=== PATIENT | female | born 1975 | race African-American/Black ===

== ENCOUNTER 2017-11-22 20:51 | Observation (INO) | payer MEDICAID, OTHER ==
[~2017-11-22] VITALS: Ht 167.6 cm; Wt 118.0 kg
[2017-11-22 20:52] VITALS: BP 115/61; PULSE 107; RESP 18; TEMP 100.3; O2SAT 100
[2017-11-22] MEDS ORDERED: ASPIRIN 81 MG CHEW TAB PO ONE (21:15)
[2017-11-22] MEDS ORDERED: NITROGLYCERIN 0.4 MG SL 25 TABS/BTL SL ONE (21:15)
[2017-11-22] MEDS ORDERED: SODIUM CHLORIDE 0.9% FLUSH 10 ML FLUSH IVF PRN (21:15)
--- NOTE | 2017-11-22 21:25 | PD ---
HPI Chief Complaint: Chest Pain Time Seen by Provider: 21:04 Travel History International Travel<30 days: No Contact w/Intl Traveler<30days: No Traveled to known affect area: No History of Present Illness HPI The patient is a 41 year old female who presents to the [facility] emergency department with a history of chest pain that began 3 days ago. The patient reports that the pain is been coming and going. She reports that at times it gets worse with stress. The patient reports that today she began to have shortness of breath. She reports that the pain is also gotten worse with each time that it recurs. She reports that it was a 6 out of 10 in severity, however now it is a 3 out of 10 in severity. She reports that it recurred around 4 PM and has been constant since then. She reports that the pain is in the left side of her chest and radiates up into the left side of her neck and left arm. She denies any prior history of cardiac disease. She does report being borderline diabetic, however her recent history is complicated by having a gastric sleeve laparoscopically done by Dr. Natarajan on last Thursday, 5 days ago. On review of systems otherwise, the patient denies having any known recent fevers, cough or congestion. She denies having any nausea or vomiting. She denies having any diarrhea. Her last bowel movement was earlier today. She denies having any blood in her stool or black or tarry stools. She denies having any diaphoresis. She denies having any lower extremity edema, calf pain , or erythema. She reports that her abdominal pain at the surgical site has been decreasing with time. She denies having any dysuria, urinary frequency, or urinary urgency. On review of systems otherwise, the patient denies having any neurologic symptoms. LMP: Spotting began today, history of irregular cycles. PFSH Past Medical History Narrative Medical The patient's past medical history is significant for being prediabetic, obesity Autoimmune Disease: No Cancer: No Cardiovascular Problems: No Gastrointestinal Disorders: No Genitourinary: No Musculoskeletal: No Neurologic: No Psychiatric: No Respiratory: No Seizures: No ?: Not : 8 Para: 6 : 2 Past Surgical History Narrative Surgical The patient's past surgical history is significant for a gastric sleeve, cholecystectomy Cholecystectomy: Yes Endocrine Surgery: No Neurologic Surgery: No Pacemaker: No Thoracic Surgery: No Other Surgery: Yes (BARIATRIC ) Social History Alcohol Use: Yes (OCC) Tobacco Use: No Substance Use: No Allergies-Medications (Allergen,Severity, Reaction): Coded Allergies: ciprofloxacin (Unverified Allergy, Severe, Cramping, 11/22/17) Reported Meds & Prescriptions Reported Meds & Active Scripts Active Reported Ondansetron Odt 4 Mg Tab 4 Mg SL Q6HR PRN Pantoprazole (Pantoprazole Sodium) 40 Mg Tab 40 Mg PO DAILY Hydrocodone-Acetaminophen Liq 7.5-325 Mg/15 Ml Soln 15 Ml PO Q4-6H PRN Review of Systems Except as stated in HPI: all other systems reviewed are Neg General / Constitutional: No: Fever Eyes: No: Visual changes HENT: No: Headaches Cardiovascular: Positive: Chest Pain or Discomfort Respiratory: Positive: Shortness of Breath Gastrointestinal: No: Nausea, Vomiting, Diarrhea, Abdominal Pain, Indigestion, Loss of Appetite Genitourinary: No: Dysuria Musculoskeletal: No: Pain Skin: No Rash Neurologic: No: Weakness, Focal Abnormalities, Change in Mentation, Slurred Speech, Sensory Disturbance Psychiatric: No: Depression Endocrine: No: Polydipsia Hematologic/Lymphatic: No: Easy Bruising Physical Exam Narrative General: The patient is a well-developed well-nourished female in no acute distress. Head and Neck exam: Head is normocephalic atraumatic. Eyes: EOMI, pupils are equal round and reactive to light. Nose: Midline septum with pink mucous membranes Mouth: Dentition unremarkable. Moist mucus membranes. Posterior oropharynx is not erythematous. No tonsillar hypertrophy. Uvula midline. Airway patent. Neck: No palpable lymphadenopathy. No nuchal rigidity. No thyromegaly. Cardiovascular: Regular rate and rhythm without murmurs, gallops, or rubs. No pulse deficit to the extremities on simultaneous auscultation and palpation of her radial artery. Lungs: Clear to auscultation bilaterally. No wheezes, rhonchi, or rales. Abdomen: Soft, without tenderness to palpation in all 4 quadrants of the abdomen. Minimal discomfort around her laparoscopic abdominal wounds, however there is no erythema, drainage, or edema surrounding the site. No guarding, rebound, or rigidity. Normal bowel sounds are audible. No tenderness on palpation of McBurney's point. Extremities: No clubbing, cyanosis, or edema. 2+ pulses in all 4 extremities. No calf tenderness on palpation. Negative Homans sign. No palpable cords. Back: No spinous process tenderness to palpation. No costovertebral angle tenderness to palpation. Neurologic Exam: Grossly nonfocal. Skin Exam: No rash noted. Intact skin that is warm and dry. Data Data Last Documented VS Vital Signs Date Time Temp Pulse Resp B/P (MAP) Pulse Ox O2 Delivery O2 Flow Rate FiO2 11/22/17 22:52 83 18 116/56 (76) 100 11/22/17 21:44 Room Air 11/22/17 20:52 100.3 Orders Orders Electrocardiogram (11/22/17 21:06) B-Type Natriuretic Peptide (11/22/17 21:06) Ckmb (Isoenzyme) Profile (11/22/17 21:06) Complete Blood Count With Diff (11/22/17 21:06) Comprehensive Metabolic Panel (11/22/17 21:06) Magnesium (Mg) (11/22/17 21:06) Prothrombin Time / Inr (Pt) (11/22/17 21:06) Act Partial Throm Time (Ptt) (11/22/17 21:06) Troponin I (11/22/17 21:06) Lipase (11/22/17 21:06) Ecg Monitoring (11/22/17 21:06) Bilateral Bp Monitoring (11/22/17 21:06) Iv Access Insert/Monitor (11/22/17 21:06) Oximetry (11/22/17 21:06) Oxygen Administration (11/22/17 21:06) Aspirin Chew (Aspirin Chew) (11/22/17 21:15) Sodium Chloride 0.9% Flush (Ns Flush) (11/22/17 21:15) Nitroglycerin Sl (Nitrostat Sl) (11/22/17 21:15) Chest, Pa & Lat (11/22/17 21:06) Ed Urine Pregnancytest Poc (11/22/17 21:06) CKMB (11/22/17 21:39) CKMB% (11/22/17 21:39) Pantoprazole Inj (Protonix Inj) (11/22/17 22:45) Ct Pulmonary Angiogram (11/22/17 22:32) Potassium Chloride Eff (K-Lyte Cl Eff) (11/22/17 23:30) Iohexol 350 Inj (Omnipaque 350 Inj) (11/22/17 23:30) Admit Order (Ed Use Only) (11/23/17 00:13) Consult General Surgery (11/23/17 ) Labs Laboratory Tests Test 11/22/17 21:39 White Blood Count 9.1 TH/MM3 Red Blood Count 4.38 MIL/MM3 Hemoglobin 11.1 GM/DL Hematocrit 32.9 % Mean Corpuscular Volume 75.2 FL Mean Corpuscular Hemoglobin 25.4 PG Mean Corpuscular Hemoglobin Concent 33.7 % Red Cell Distribution Width 14.9 % Platelet Count 323 TH/MM3 Mean Platelet Volume 8.0 FL Neutrophils (%) (Auto) 60.3 % Lymphocytes (%) (Auto) 30.9 % Monocytes (%) (Auto) 5.5 % Eosinophils (%) (Auto) 2.8 % Basophils (%) (Auto) 0.5 % Neutrophils # (Auto) 5.5 TH/MM3 Lymphocytes # (Auto) 2.8 TH/MM3 Monocytes # (Auto) 0.5 TH/MM3 Eosinophils # (Auto) 0.3 TH/MM3 Basophils # (Auto) 0.0 TH/MM3 CBC Comment DIFF FINAL Differential Comment Prothrombin Time 11.2 SEC Prothromb Time International Ratio 1.1 RATIO Activated Partial Thromboplast Time 26.7 SEC Blood Urea Nitrogen 11 MG/DL Creatinine 0.69 MG/DL Random Glucose 90 MG/DL Total Protein 7.8 GM/DL Albumin 3.5 GM/DL Calcium Level 9.1 MG/DL Magnesium Level 2.1 MG/DL Alkaline Phosphatase 57 U/L Aspartate Amino Transf (AST/SGOT) 28 U/L Alanine Aminotransferase (ALT/SGPT) 48 U/L Total Bilirubin 1.0 MG/DL Sodium Level 138 MEQ/L Potassium Level 3.2 MEQ/L Chloride Level 102 MEQ/L Carbon Dioxide Level 25.6 MEQ/L Anion Gap 10 MEQ/L Estimat Glomerular Filtration Rate 113 ML/MIN Total Creatine Kinase 219 U/L Creatine Kinase MB 1.0 NG/ML Creatine Kinase MB % 0.5 % Troponin I LESS THAN 0.02 NG/ML B-Type Natriuretic Peptide 4 PG/ML Lipase 508 U/L MDM Medical Decision Making Medical Screen Exam Complete: Yes Emergency Medical Condition: Yes Medical Record Reviewed: Yes Differential Diagnosis Acute coronary syndrome, versus pulmonary embolism, versus postoperative pneumonia, versus anxiety disorder, versus acid reflux Narrative Course During the course of the patient's emergency department visit, the patient's history, examination, and differential diagnosis were reviewed with the patient. The patient was placed on a underground miner with oximetry and frequent blood pressure monitoring. The patient had IV access obtained and blood work sent for analysis. The patient had an EKG done on arrival that shows a sinus rhythm heart rate of 90, QRS duration is 100 ms, QTC [address] segment elevation, T waves are inverted in lead III, V1. The patient was initially provided aspirin 324 mg p.o. 1, nitroglycerin sublingual 1, Protonix 40 mg IV The patient's laboratory studies were reviewed and remarkable for a white count of 9.1, hemoglobin 11.1, platelets 323 with a normal differential, CMP is remarkable for a potassium of 3.2, CPK 219 with an MB percent of 0.5, troponin I less than 0.02, lipase 508. The patient's potassium was supplemented orally. Radiology studies were reviewed and remarkable for a chest x-ray that showed left lung atelectasis, CTA to rule out PE showed no evidence of PE, atelectasis at the bases. The patient's case was discussed with Dr. Pierre. The patient's history, laboratory studies and examination findings as well as imaging findings were discussed with him. He was agreeable with the plan for the patient to proceed with admission to the chest pain center. He will see the patient in consultation in the morning as she is recently postop. The patient's results were discussed with the patient, including the plan of care. I explained that further testing and/ or monitoring is indicated based on the patient's history, examination, and/ or laboratory findings. Therefore, I recommended admission for additional evaluation. The patient expressed understanding and was agreeable with this plan. The patient was admitted to the hospital in stable condition and sent to a bed under the care of the chest pain center. Physician Communication Physician Communication The patient's case including history, pertinent physical examination findings, and laboratory studies were discussed with Dr. Pierre. It was agreed that the patient would be admitted to the chest pain center for rule out serial cardiac enzyme protocol. Diagnosis Primary Impression: Chest pain, rule out acute myocardial infarction Admitting Information Admitting Physician Requests: Observation Nataly Velasco MD Nov 22, 2017 21:25
--- NOTE | 2017-11-22 21:41 | RADRPT ---
EXAM DATE/TIME: 11/22/2017 21:25 [facility] COMPARISON: No previous studies available for comparison. INDICATIONS : Short of breath, chest left arm and neck pain MEDICAL HISTORY : None. SURGICAL HISTORY : Cholecystectomy. Grastic sleeve ENCOUNTER: Initial ACUITY: 3 days PAIN SCORE: 6/10 LOCATION: Chest FINDINGS: PA and lateral views of the chest demonstrate the lungs to be symmetrically aerated without evidence of mass, infiltrate or effusion. Linear atelectasis or scarring at the left lung base. The cardiomedi astinal contours are unremarkable. Osseous structures are intact. CONCLUSION: 1. Linear atelectasis or scarring at the left lung base. No effusion or pneumothorax. Ashok Marks MD on November 22, 2017 at 21:39 Board Certified Radiologist. This report was verified electronically.
[2017-11-22 21:44] VITALS: BP_SYST 131; BP_SYST 132; BP_DIAS 59; BP_DIAS 64; PULSE 75; RESP 18; O2SAT 100; O2SAT 99
[2017-11-22 22:06] LABS: AUTOMATED NEUTROPHIL # 5.5 TH/MM3 (1.8-7.7); BASOPHIL % 0.5 % (0.0-2.0); EOSINOPHIL # 0.3 TH/MM3 (0-0.4); EOSINOPHIL % 2.8 % (0.0-4.0); HEMATOCRIT 32.9 % (35.0-46.0); HEMOGLOBIN 11.1 GM/DL (11.6-15.3); LYMPH % 30.9 % (9.0-44.0); LYMPHOCYTE # 2.8 TH/MM3 (1.0-4.8); MEAN CELL VOLUME 75.2 FL (80.0-100.0); MEAN CORPUSCULAR HEMOGLOBIN 25.4 PG (27.0-34.0); MEAN CORPUSCULAR HGB CONC 33.7 % (32.0-36.0); MONO % 5.5 % (0.0-8.0); MONOCYTE # 0.5 TH/MM3 (0-0.9); NEUT % 60.3 % (16.0-70.0); PLATELET COUNT 323 TH/MM3 (150-450); RED BLOOD COUNT 4.38 MIL/MM3 (4.00-5.30); RED CELL DISTRIBUTION WIDTH 14.9 % (11.6-17.2); WHITE BLOOD COUNT 9.1 TH/MM3 (4.0-11.0)
[2017-11-22 22:13] LABS: ALBUMIN 3.5 GM/DL (3.4-5.0); AST (GOT) 28 U/L (15-37); BICARBONATE 25.6 MEQ/L (21.0-32.0); BLOOD UREA NITROGEN 11 MG/DL (7-18); CALCIUM 9.1 MG/DL (8.5-10.1); CHLORIDE 102 MEQ/L (98-107); CREATININE 0.69 MG/DL (0.50-1.00); GLOMERULAR FILTRATION RATE 113 ML/MIN (>89); GLUCOSE,RANDOM 90 MG/DL (74-106); MAGNESIUM 2.1 MG/DL (1.5-2.5); SODIUM (NA) 138 MEQ/L (136-145)
[2017-11-22 22:14] LABS: ALT (GPT) 48 U/L (10-53)
[2017-11-22 22:18] LABS: ALKALINE PHOSPHATASE 57 U/L (45-117); TOTAL PROTEIN 7.8 GM/DL (6.4-8.2); TROPONIN I LESS THAN 0.02 NG/ML (0.02-0.05)
[2017-11-22 22:41] LABS: INTERNATIONAL NORMALIZED RATIO 1.1 RATIO; PROTHROMBIN TIME - PATIENT 11.2 SEC (9.8-11.6)
[2017-11-22] MEDS ORDERED: PANTOPRAZOLE SODIUM 40 MG VIAL IV PUSH ONE (22:45)
[2017-11-22 22:52] VITALS: BP 116/56; PULSE 83; RESP 18; O2SAT 100
[2017-11-22] MEDS ORDERED: IOHEXOL 350 MG/ML 10 ML VIAL (for RAD DIAG) IVCONTRAST ONE (23:30)
[2017-11-22] MEDS ORDERED: POTASSIUM CHLORIDE 25 MEQ EFFERVESCENT TAB PO ONE (23:30)
--- NOTE | 2017-11-22 23:56 | RADRPT ---
EXAM DATE/TIME: 11/22/2017 23:25 [facility] COMPARISON: CT PULMONARY ANGIOGRAM, May 11, 2016, 20:46. INDICATIONS : Shortness of breath and chest pain; rule out pulmonary embolus. Patient had bariatric surgery 5 days ago. IV CONTRAST: 78 cc Omnipaque 350 (iohexol) IV RADIATION DOSE: 10.56 CTDIvol (mGy) MEDICAL HISTORY : None SURGICAL HISTORY : Cholecystectomy. Bariatric surgery ENCOUNTER: Initial ACUITY: 1 day PAIN SCALE: 6/10 LOCATION: chest TECHNIQUE: Volumetric scanning of the chest was performed using a pulmonary embolism protocol MIP images were re constructed. Using automated exposure control and adjustment of the mA and/or kV according to patien t size, radiation dose was kept as low as reasonably achievable to obtain optimal diagnostic quality images. DICOM format image data is available electronically for review and comparison. Follow-up recommendations for detected pulmonary nodules are based at a minimum on nodule size and pa tient risk factors according to Fleischner Society Guidelines. FINDINGS: PULMONARY ARTERIES: No filling defects are seen in the pulmonary arteries to the proximal segmental level. More distal se gmental branches are incompletely visualized. LUNGS: Minimal linear airspace disease at the left lung base consistent with atelectasis PLEURAE: There is no pleural thickening or pleural effusion. MEDIASTINUM: There is good visualization of the great vessels of the middle mediastinum. No evidence of mediastin al or hilar adenopathy/mass. MUSCULOSKELETAL: Within normal limits for patient age. MISCELLANEOUS: Postsurgical features of gastric sleeve surgery. No significant free air or drainable fluid collectio ns in the upper abdomen. CONCLUSION: 1. No CT evidence for pulmonary embolism to the proximal segmental level. More distal segmental branc hes are incompletely evaluated. 2. Minimal left lung base atelectasis. Ranjeet Alston MD on November 22, 2017 at 23:51 Board Certified Radiologist. This report was verified electronically.
[2017-11-23 01:12] VITALS: BP 106/62; PULSE 82; RESP 18; O2SAT 100
[2017-11-23] MEDS ORDERED: HYDR1SOL3 PO (01:16)
[2017-11-23] MEDS ORDERED: ONDA4TAB7 SL (01:16)
[2017-11-23] MEDS ORDERED: PANT40TA3 PO (01:16)
[2017-11-23] MEDS ORDERED: SODIUM CHLOR 0.9% 1000 ML INJ 1,000 ML IV SCH (01:28)
[2017-11-23] MEDS ORDERED: ONDANSETRON HCL 4 MG/2 ML VIAL IV PUSH PRN (01:30)
[2017-11-23] MEDS ORDERED: ACETAMINOPHEN/HYDROcodone 325 MG/7.5 MG TAB PO PRN (01:30)
[2017-11-23] MEDS ORDERED: SODIUM CHLORIDE 0.9% FLUSH 10 ML FLUSH IV FLUSH PRN (01:30)
[2017-11-23 02:17] LABS: TROPONIN I LESS THAN 0.02 NG/ML (0.02-0.05)
[2017-11-23 03:04] VITALS: BP 116/55; PULSE 77; RESP 18; TEMP 98; O2SAT 100
[2017-11-23 05:20] LABS: TROPONIN I LESS THAN 0.02 NG/ML (0.02-0.05)
[2017-11-23] MEDS ORDERED: ACETAMINOPHEN 500 MG CPLT PO PRN (07:30)
[2017-11-23] MEDS ORDERED: NITROGLYCERIN 0.4 MG SL 25 TABS/BTL SL PRN (07:30)
--- NOTE | 2017-11-23 07:51 | HHI.HP ---
HPI Primary Care Physician Dr. Kaylin Morales Chief Complaint Chest pain History of Present Illness 41-year-old female status post gastric sleeve surgery, Thursday11/17/17, presents to the ER for further evaluation of chest pain. Onset 3 days ago. Location substernal. Characterized as stabbing, intermittent pain. Nonexertional. Severity on Thursday moderate, reports mild discomfort Thursday. Thursday discomfort persists with associated symptoms of dyspnea. Radiation to left arm, left shoulder, and left-sided neck since Thursday. Describes left arm, left shoulder, and left side of neck as numb. Duration on Thursday intermittent, however since Thursday discomfort became. constant. Associated symptoms of dyspnea has resolved. Denied associated symptoms of nausea, vomiting, or diaphoresis. Precipitating factor possible "gas pains" due to surgery last week. No known relieving factors. Currently chest pain-free. Become concerned of a blood clot, therefore came to ER for further evaluation. Review of Systems General: No fatigue,weakness, fever, chills, or recent illness. S/P gastric sleeve surgery 11/17/17, currently post op diet is clear liquids only. HEENT: No PATINO, no vision changes, no dysphasia. Chronic sinus issues. CV: As stated above. No current CP or pressure. RESP: SOB has resolved. No cough or hemoptysis. GI: No nausea, vomiting, or bowel changes. Clear diet currently, s/p gastric sleeve surgery 6 days ago. : No dysuria, urgency, frequency. Denies chance of , reports prior to surgery last week test negative. EXT: No lower leg edema, no paraesthesias MS: No discomfort or change in ROM NEURO: No LOC, motor/sensory deficits PSYCH: No anxiety, depression SKIN: No rashes, no concerning lesions Past Family Social History Allergies: Coded Allergies: ciprofloxacin (Unverified Allergy, Severe, Cramping, 11/22/17) Past Medical History None Past Surgical History Gastric sleeve (11/17/17), cholecystectomy Reported Medications Reported Meds & Active Scripts Active Reported Ondansetron Odt 4 Mg Tab 4 Mg SL Q6HR PRN Pantoprazole (Pantoprazole Sodium) 40 Mg Tab 40 Mg PO DAILY Hydrocodone-Acetaminophen Liq 7.5-325 Mg/15 Ml Soln 15 Ml PO Q4-6H PRN Active Ordered Medications Current Medications Medications (Trade) Dose Ordered Sig/Alda Route Start Time Stop Time Status Last Admin (NS Flush) 2 ml UNSCH PRN IVF 11/22/17 21:15 Sodium Chloride 1,000 ml @ 100 mls/hr Q10H IV 11/23/17 01:28 11/23/17 02:28 (NS Flush) 2 ml UNSCH PRN IV FLUSH 11/23/17 01:30 (NS Flush) 2 ml BID IV FLUSH 11/23/17 09:00 ([place] 7.5-325 Mg) 1 tab Q4H PRN PO 11/23/17 01:30 (Zofran Inj) 4 mg Q6H PRN IV PUSH 11/23/17 01:30 (Protonix) 40 mg DAILY PO 11/23/17 09:00 (Tylenol) 500 mg Q4H PRN PO 11/23/17 07:30 UNV (Nitrostat Sl) 0.4 mg Q5M PRN SL 11/23/17 07:30 UNV (Aspirin) 325 mg DAILY PO 11/23/17 09:00 UNV Family History Noncontributory for early onset cardiovascular disease. Social History No known diabetes, hypertension, or hyperlipidemia. Lifelong nonsmoker. Rare alcohol use. Denies any illegal drugs. . [id number] mother. Past cardiac testing Lexsican test (July 2017, Dr. Scott)-reported to be normal. Testing part of pre-op testing before gastric surgery. Physical Exam Vital Signs Vital Signs Date Time Temp Pulse Resp B/P (MAP) Pulse Ox O2 Delivery O2 Flow Rate FiO2 11/23/17 03:04 98.0 77 18 116/55 (75) 100 11/23/17 02:28 11/23/17 01:12 82 18 106/62 (77) 100 11/22/17 22:52 83 18 116/56 (76) 100 11/22/17 21:44 99 Room Air 11/22/17 21:44 75 18 132/59 (83) 100 131/64 (86) 11/22/17 21:44 99 Room Air 11/22/17 20:52 100.3 107 18 115/61 (79) 100 Room Air Physical Exam GENERAL: Alert WN, WD, NAD, pleasant, obese female HEAD: NC, AT EYES: Sclera clear, conjunctiva without injection, pupils equal and round ENT: Mucous membranes pink and moist NECK: Supple, no masses, trachea midline CV: RRR, without murmur, rub, gallop, no JVD, S1-S2 no S3-S4. Chest wall nontender with palpation. RESP: Clear lungs throughout bilateral, no crackles, wheeze, rhonchi, symmetrical chest rise, nonlabored, able to speak in full sentences ABD: Soft, NT, ND, no masses, positive bowel tones EXT: Pulses +24, no dependent edema MS: Normal tone 4 extremities, nontender, no obvious deformities, full range of motion NEURO: CN II through CN XII grossly intact, motor strength 5/5 PSYCH: A+O 3, pleasant affect, appropriate speech, mood, insight and judgment SKIN: Normal turgor, normal texture, no lesions, no rashes, even hair distribution Laboratory Laboratory Tests Test 11/22/17 21:39 11/23/17 01:47 11/23/17 03:55 White Blood Count 9.1 Red Blood Count 4.38 Hemoglobin 11.1 Hematocrit 32.9 Mean Corpuscular Volume 75.2 Mean Corpuscular Hemoglobin 25.4 Mean Corpuscular Hemoglobin Concent 33.7 Red Cell Distribution Width 14.9 Platelet Count 323 Mean Platelet Volume 8.0 Neutrophils (%) (Auto) 60.3 Lymphocytes (%) (Auto) 30.9 Monocytes (%) (Auto) 5.5 Eosinophils (%) (Auto) 2.8 Basophils (%) (Auto) 0.5 Neutrophils # (Auto) 5.5 Lymphocytes # (Auto) 2.8 Monocytes # (Auto) 0.5 Eosinophils # (Auto) 0.3 Basophils # (Auto) 0.0 CBC Comment DIFF FINAL Differential Comment Prothrombin Time 11.2 Prothromb Time International Ratio 1.1 Activated Partial Thromboplast Time 26.7 Blood Urea Nitrogen 11 Creatinine 0.69 Random Glucose 90 Total Protein 7.8 Albumin 3.5 Calcium Level 9.1 Magnesium Level 2.1 Alkaline Phosphatase 57 Aspartate Amino Transf (AST/SGOT) 28 Alanine Aminotransferase (ALT/SGPT) 48 Total Bilirubin 1.0 Sodium Level 138 Potassium Level 3.2 Chloride Level 102 Carbon Dioxide Level 25.6 Anion Gap 10 Estimat Glomerular Filtration Rate 113 Total Creatine Kinase 219 219 191 Creatine Kinase MB 1.0 0.7 1.0 Creatine Kinase MB % 0.5 0.3 Troponin I LESS THAN 0.02 LESS THAN 0.02 LESS THAN 0.02 B-Type Natriuretic Peptide 4 Lipase 508 Result Diagram: 11/22/17213811/22/172138 Course EKG Sinus rhythm, normal axis, no ST or T-segment changes Caprini VTE Risk Assessment Caprini VTE Risk Assessment: No/Low Risk (score <= 1) Caprini Risk Assessment Model Point Value = 1 Point Value = 2 Point Value = 3 Point Value = 5 Age 41-60 Minor surgery BMI > 25 kg/m2 Swollen legs Varicose veins or History of unexplained or recurrent spontaneous Oral contraceptives or hormone replacement Sepsis (< 1 month) Serious lung disease, including pneumonia (< 1 month) Abnormal pulmonary function Acute myocardial infarction Congestive heart failure (< 1 month) History of inflammatory bowel disease Medical patient at bed rest Age 61-74 Arthroscopic surgery Major open surgery (> 45 min) Laparoscopic surgery (> 45 min) Malignancy Confined to bed (> 72 hours) Immobilizing plaster cast Central venous access Age >= 75 History of VTE Family history of VTE Factor V Leiden Prothrombin [id number] Lupus anticoagulant Anticardiolipin antibodies Elevated serum homocysteine Heparin-induced thrombocytopenia Other congenital or acquired thrombophilia Stroke (< 1 month) Elective arthroplasty Hip, pelvis, or leg fracture Acute spinal cord injury (< 1 month) Prophylaxis Regimen Total Risk Factor Score Risk Level Prophylaxis Regimen 0-1 Low Early ambulation 2 Moderate Order ONE of the following: *Sequential Compression Device (SCD) *Heparin 5000 units SQ BID 3-4 Higher Order ONE of the following medications: *Heparin 5000 units SQ TID *Enoxaparin/Lovenox 40 mg SQ daily (WT < 150 kg, CrCl > 30 mL/min) *Enoxaparin/Lovenox 30 mg SQ daily (WT < 150 kg, CrCl > 10-29 mL/min) *Enoxaparin/Lovenox 30 mg SQ BID (WT < 150 kg, CrCl > 30 mL/min) AND/OR *Sequential Compression Device (SCD) 5 or more Highest Order ONE of the following medications: *Heparin 5000 units SQ TID (Preferred with Epidurals) *Enoxaparin/Lovenox 40 mg SQ daily (WT < 150 kg, CrCl > 30 mL/min) *Enoxaparin/Lovenox 30 mg SQ daily (WT < 150 kg, CrCl > 10-29 mL/min) *Enoxaparin/Lovenox 30 mg SQ BID (WT < 150 kg, CrCl > 30 mL/min) AND *Sequential Compression Device (SCD) Assessment and Plan Assessment and Plan #1 Atypical chest pain-admitted chest pain center. Ruled out with 3 sets EKGs, cardiac enzymes, and monitored overnight. Seen and evaluated by Dr. Esau Kerns. No further cardiac testing required. Reports preoperative Lexiscan normal July 2017. CT pulmonary angiogram does not suggest pulmonary emboli. Discomfort likely postoperative related. Plan is to discharge this morning, after Dr. Montoya evaluates patient this morning. Dr. Montoya notified in ER of patient's arrival and would like to see her before discharge. Verbalizes understanding and agreeable to plan of care. Discussed plan of care also with RN. Jennifer Roberts Nov 23, 2017 07:51
--- NOTE | 2017-11-23 07:54 | HHI.DCPOC ---
Discharge Care Plan Diagnosis: (1) Atypical chest pain (2) Status post gastric surgery Goals to Promote Your Health * To prevent worsening of your condition and complications * To maintain your health at the optimal level Directions to Meet Your Goals Take your medications as prescribed Follow your dietary instruction Follow activity as directed Keep your appointments as scheduled Take your immunizations and boosters as scheduled If your symptoms worsen call your PCP, if no PCP go to Urgent Care Center or Emergency Room Smoking is Dangerous to Your Health. Avoid second hand smoke Call the 24-hour hour crisis hotline for domestic abuse at Jennifer Roberts Nov 23, 2017 07:54
[2017-11-23 07:55] VITALS: BP 122/59; PULSE 74; RESP 18; TEMP 98; O2SAT 98
[2017-11-23 08:31] VITALS: PULSE 68
[2017-11-23] MEDS ORDERED: PANTOPRAZOLE SOD 40 MG DELAYED RELEASE TAB PO SCH (09:00)
[2017-11-23] MEDS ORDERED: ASPIRIN 325 MG TAB PO SCH (09:00)
[2017-11-23] MEDS ORDERED: SODIUM CHLORIDE 0.9% FLUSH 10 ML FLUSH IV FLUSH SCH (09:00)
[2017-11-23 09:45] VITALS: O2SAT 98
--- NOTE | 2017-11-23 11:36 | PD.CONS ---
HPI Consult Requested By Dr. Velasco Reason for Consult Chest pain after recent bariatric surgery Primary Care Physician Unknown History of Present Illness aHzel is a 41yo female that presented to the ED with complaints of nonexertional chest pain after having outpatient VSG on 11/17/17. She did have a negative Lexiscan prior to surgery as part of her pre-procedural clearances. Review of Systems Constitutional: DENIES: Diaphoretic episodes, Fatigue, Fever, Weight gain, Weight loss, Chills, Dizziness, Change in appetite, Night Sweats Endocrine: DENIES: Abnorml menstrual pattern, Heat/cold intolerance, Polydipsia , Polyuria, Polyphagia Eyes: DENIES: Blurred vision, Diplopia, Eye inflammation, Eye pain, Vision loss , Photosensitivity, Double Vision Ears, nose, mouth, throat: DENIES: Tinnitus, Hearing loss, Vertigo, Nasal discharge, Oral lesions, Throat pain, Hoarseness, Ear Pain, Running Nose, Epistaxis, Sinus Pain, Toothache, Odynophagia Respiratory: DENIES: Apneas, Cough, Snoring, Wheezing, Hemoptysis, Sputum production, Shortness of breath Cardiovascular: DENIES: Chest pain, Palpitations, Syncope, Dyspnea on Exertion , PND, Lower Extremity Edema, Orthopnea, Claudication Gastrointestinal: DENIES: Abdominal pain, Black stools, Bloody stools, Constipation, Diarrhea, Nausea, Vomiting, Difficulty Swallowing, Anorexia Genitourinary: DENIES: Abnormal vaginal bleeding, Dysmenorrhea, Dyspareunia, Sexual dysfunction, Urinary frequency, Urinary incontinence, Urgency, Hematuria , Dysuria, Nocturia, Vaginal discharge Musculoskeletal: DENIES: Joint pain, Muscle aches, Stiffness, Joint Swelling, Back pain, Neck pain Integumentary: DENIES: Abnormal pigmentation, Pruritus, Rash, Nail changes, Breast masses, Breast skin changes, Nipple discharge Hematologic/lymphatic: DENIES: Bruising, Lymphadenopathy Immunologic/allergic: DENIES: Eczema, Urticaria Neurologic: DENIES: Abnormal gait, Headache, Localized weakness, Paresthesias, Seizures, Speech Problems, Tremor, Poor Balance Psychiatric: DENIES: Anxiety, Confusion, Mood changes, Depression, Hallucinations, Agitation, Suicidal Ideation, Homicidal Ideation, Delusions Past Family Social History Past Medical History Anemia Multinodular thyroid Morbid obesity Past Surgical History Sleeve gastrectomy cholecystectomy Reported Medications Current Medications Medications (Trade) Dose Ordered Sig/Alda Route PRN Reason Start Time Stop Time Status Last Admin Dose Admin Sodium Chloride (NS Flush) 2 ml UNSCH PRN IVF FLUSH AFTER USING IV ACCESS 11/22/17 21:15 Sodium Chloride 1,000 ml @ 100 mls/hr Q10H IV 11/23/17 01:28 11/23/17 02:28 Sodium Chloride (NS Flush) 2 ml UNSCH PRN IV FLUSH FLUSH AFTER USING IV ACCESS 11/23/17 01:30 Sodium Chloride (NS Flush) 2 ml BID IV FLUSH 11/23/17 09:00 Acetaminophen/ Hydrocodone Bitart ([place] 7.5-325 Mg) 1 tab Q4H PRN PO PAIN SCALE 1 TO 7 11/23/17 01:30 Ondansetron HCl (Zofran Inj) 4 mg Q6H PRN IV PUSH NAUSEA 11/23/17 01:30 Pantoprazole Sodium (Protonix) 40 mg DAILY PO 11/23/17 09:00 11/23/17 08:48 Acetaminophen (Tylenol) 500 mg Q4H PRN PO HEADACHE 11/23/17 07:30 Nitroglycerin (Nitrostat Sl) 0.4 mg Q5M PRN SL CHEST PAIN 11/23/17 07:30 Aspirin (Aspirin) 325 mg DAILY PO 11/23/17 09:00 11/23/17 08:49 Allergies: Coded Allergies: ciprofloxacin (Unverified Allergy, Severe, Cramping, 11/22/17) Active Ordered Medications Current Medications Medications (Trade) Dose Ordered Sig/Alda Route Start Time Stop Time Status Last Admin (NS Flush) 2 ml UNSCH PRN IVF 11/22/17 21:15 Sodium Chloride 1,000 ml @ 100 mls/hr Q10H IV 11/23/17 01:28 11/23/17 02:28 (NS Flush) 2 ml UNSCH PRN IV FLUSH 11/23/17 01:30 (NS Flush) 2 ml BID IV FLUSH 11/23/17 09:00 ([place] 7.5-325 Mg) 1 tab Q4H PRN PO 11/23/17 01:30 (Zofran Inj) 4 mg Q6H PRN IV PUSH 11/23/17 01:30 (Protonix) 40 mg DAILY PO 11/23/17 09:00 11/23/17 08:48 (Tylenol) 500 mg Q4H PRN PO 11/23/17 07:30 (Nitrostat Sl) 0.4 mg Q5M PRN SL 11/23/17 07:30 (Aspirin) 325 mg DAILY PO 11/23/17 09:00 11/23/17 08:49 Family History Hypertension Renal Failure Diabetes Social History She denies smoking, ETOH use, or illicit drug use. She is currently employed Physical Exam Vital Signs Vital Signs Date Time Temp Pulse Resp B/P (MAP) Pulse Ox O2 Delivery O2 Flow Rate FiO2 11/23/17 09:45 98 21 11/23/17 08:31 68 11/23/17 07:55 98.0 74 18 122/59 (80) 98 11/23/17 03:04 98.0 77 18 116/55 (75) 100 11/23/17 02:28 11/23/17 01:12 82 18 106/62 (77) 100 11/22/17 22:52 83 18 116/56 (76) 100 11/22/17 21:44 99 Room Air 11/22/17 21:44 75 18 132/59 (83) 100 131/64 (86) 11/22/17 21:44 99 Room Air 11/22/17 20:52 100.3 107 18 115/61 (79) 100 Room Air Physical Exam GENERAL: No acute distress RESPIRATORY: No accessory muscle use. GASTROINTESTINAL: Abdomen soft, non-tender, nondistended. MUSCULOSKELETAL: No cyanosis, or edema. Laboratory Laboratory Tests Test 11/22/17 21:39 11/23/17 01:47 11/23/17 03:55 White Blood Count 9.1 Red Blood Count 4.38 Hemoglobin 11.1 Hematocrit 32.9 Mean Corpuscular Volume 75.2 Mean Corpuscular Hemoglobin 25.4 Mean Corpuscular Hemoglobin Concent 33.7 Red Cell Distribution Width 14.9 Platelet Count 323 Mean Platelet Volume 8.0 Neutrophils (%) (Auto) 60.3 Lymphocytes (%) (Auto) 30.9 Monocytes (%) (Auto) 5.5 Eosinophils (%) (Auto) 2.8 Basophils (%) (Auto) 0.5 Neutrophils # (Auto) 5.5 Lymphocytes # (Auto) 2.8 Monocytes # (Auto) 0.5 Eosinophils # (Auto) 0.3 Basophils # (Auto) 0.0 CBC Comment DIFF FINAL Differential Comment Prothrombin Time 11.2 Prothromb Time International Ratio 1.1 Activated Partial Thromboplast Time 26.7 Blood Urea Nitrogen 11 Creatinine 0.69 Random Glucose 90 Total Protein 7.8 Albumin 3.5 Calcium Level 9.1 Magnesium Level 2.1 Alkaline Phosphatase 57 Aspartate Amino Transf (AST/SGOT) 28 Alanine Aminotransferase (ALT/SGPT) 48 Total Bilirubin 1.0 Sodium Level 138 Potassium Level 3.2 Chloride Level 102 Carbon Dioxide Level 25.6 Anion Gap 10 Estimat Glomerular Filtration Rate 113 Total Creatine Kinase 219 219 191 Creatine Kinase MB 1.0 0.7 1.0 Creatine Kinase MB % 0.5 0.3 Troponin I LESS THAN 0.02 LESS THAN 0.02 LESS THAN 0.02 B-Type Natriuretic Peptide 4 Lipase 508 Result Diagram: 11/22/17213811/22/172138 Imaging Last Impressions Chest X-Ray 11/22/172105 Signed Impressions: Service Date/Time: Wednesday, November 22, 2017 21:25 - CONCLUSION: 1. Linear atelectasis or scarring at the left lung base. No effusion or pneumothorax. Ashok Marks MD Assessment and Plan Assessment and Plan 41yo F s/p recent bariatric surgery with nonexertional chest pain -Continue with frequent ambulation -Continue to increase fluids as tolerated -OK for discharge from surgical standpoint -Follow up in our office on Thursday Code Status Full Attending Statement This patient was examined by Dr. Pierre and this note was written on his behalf. Ro Tubbs Nov 23, 2017 11:36
[2017-11-23 12:16] VITALS: BP 128/77; PULSE 78; RESP 19; TEMP 97.3; O2SAT 94
--- NOTE | 2017-11-23 16:32 | EKG ---
Date Performed: 11/23/2017 Time Performed: 01:58:37 PTAGE: 41 years EKG: Sinus rhythm NORMAL ECG PREVIOUS TRACING : 11/22/2017 21.20 Since previous tracing, no significant change noted DOCTOR: Esau Kerns Interpretating Date/Time 11/23/2017 16:30:33
--- NOTE | 2017-11-23 16:32 | EKG ---
Date Performed: 11/22/2017 Time Performed: 21:20:09 PTAGE: 41 years EKG: Sinus rhythm NORMAL ECG PREVIOUS TRACING : 05/11/2016 16.54 Since previous tracing, no significant change noted DOCTOR: Esau Kerns Interpretating Date/Time 11/23/2017 16:30:45
--- NOTE | 2017-11-23 16:37 | EKG ---
Date Performed: 11/23/2017 Time Performed: 04:24:53 PTAGE: 41 years EKG: Sinus rhythm NORMAL ECG PREVIOUS TRACING : 11/22/2017 21.20 DOCTOR: Esau Kerns Interpretating Date/Time 11/23/2017 16:35:48
== END 2017-11-23 11:42 | disposition home or self-care (01) ==
LOC: NEPE 20:51 → NEDA 11-23 00:16 → NEPFCDU 11-23 02:07
PROVIDERS: ADMIT Internal Medicine Interventional Cardiology; ATTEND Internal Medicine Interventional Cardiology
DX: R07.89 Other chest pain (principal); J98.11 Atelectasis; R73.03 Prediabetes; E66.9 Obesity, unspecified; Z68.41 Body mass index [BMI] 40.0-44.9, adult; Z98.84 Bariatric surgery status; Z79.82 Long term (current) use of aspirin
CPT/HCPCS: 71046; 71275; 80053; 82550; 82552; 83690; 83735; 83880; 84484; 84703; 85025; 85610; 85730; 93005; 96361; 96374; 99285; C9113; G0378; J7030; Q9967